=== PATIENT | female | born 1945 | race Caucasian/White ===

== ENCOUNTER 2019-08-04 15:59 | Emergency (ER) | payer MEDICARE, MEDICAID, SELFPAY ==
[2019-08-04 16:16] VITALS: BP 114/58; PULSE 89; RESP 16; TEMP 37.2; O2SAT 95
[2019-08-04 17:57] LABS: Add Manual Diff / Slide Review NO; Basophils Absolute Auto 100 /uL (0-100); Basophils Percent Auto 0.6 % (0-2); Eosinophils Absolute Auto 100 /uL (0-450); Eosinophils Percent Auto 1.2 % (2-4); Hematocrit 31.3 % (36-46); Hemoglobin 10.7 g/dL (12.0-16.0); Lymphocytes Absolute Auto 2200 /uL (1100-4500); Lymphocytes Percent Auto 21.8 % (25-40); Mean Corpuscular HGB Conc 34.2 % (30-36); Mean Corpuscular Hemoglobin 31.7 PG (26-34); Mean Corpuscular Volume 92.5 fL (80-100); Monocytes Absolute Auto 1000 /uL (0-900); Monocytes Percent Auto 9.6 % (3-14); Neutrophils Absolute Auto 6900 /uL (1500-7000); Neutrophils Percent Auto 66.8 % (50-75); Platelet Count 307 X10^3/uL (150-400); Red Blood Cell Count 3.39 X10^6/uL (4.0-5.2); White Blood Cell Count 10.3 X10^3/uL (4.5-11.0)
[2019-08-04 18:03] LABS: Alanine Aminotransferase 21 IU/L (<35); Albumin 3.7 g/dL (3.5-5.0); Albumin Globulin Ratio 0.9 (1.0-2.8); Alkaline Phosphatase 77 U/L (38-126); Aspartate Aminotransferase 27 IU/L (14-36); BUN Creatinine Ratio 23.6 (6-22); Bilirubin Total 0.2 mg/dL (0.2-1.3); Blood Urea Nitrogen 26 mg/dL (7-17); Calcium 8.7 mg/dL (8.4-10.2); Carbon Dioxide 26 mmol/L (22-32); Chloride 102 mmol/L (98-107); Estimated Glomerular Filt Rate 48.4 mL/min (>60); Globulin 4.2 g/dL (1.7-4.1); Glucose 98 mg/dL (80-110); HEMOLYSIS < 15 (0-50); Potassium 3.7 mmol/L (3.4-5.1); Sodium 136 mmol/L (137-145); Total Protein 7.9 g/dL (6.3-8.2)
[2019-08-04 18:29] LABS: Procalcitonin < 0.05 ng/mL (<0.5)
[2019-08-04 18:42] LABS: Appearance Urine UA CLOUDY; Bilirubin Urine UA NEGATIVE (NEGATIVE); Color Urine UA RED; Glucose Urine UA NEGATIVE (Negative); Ketones Urine UA TRACE (NEGATIVE); Leukocyte Esterase Urine UA 1+ (NEGATIVE); Nitrite Urine UA NEGATIVE (Negative); Occult Blood Urine UA 3+ (Negative); Protein Urine UA 3+ (Negative); Specific Gravity Urine UA 1.015 (1.000-1.035); Urobilinogen Urine UA 0.2 E.U./dL (0.2)
[2019-08-04 19:00] LABS: Bacteria Urine Many (>30); Culture Indicated Urine Cult Not Indicated; RBC Urine >100/HPF (0-5/HPF); Squamous Epithelial Cell Urine 10-30 /HPF (0-5/HPF); WBC Urine 10-30/HPF (0-5/HPF)
--- NOTE | 2019-08-04 19:39 | ED_ITS ---
HPI - Female Genitourinary <GUY Flanagan - Last Filed: 08/04/19 19:58> General Chief complaint: Urogenital-Female Stated complaint: Vaginal Bleeding Time Seen by Provider: 08/04/19 16:22 Source: EMS Mode of arrival: EMS Limitations: altered mental status History of Present Illness HPI Narrative: The patient is a 73-year-old female nonsmoker with history of dementia who presents with a chief complaint of blood in her brace twice today at her group home facility. She was seen at an outside facility on the diagnosed with a UTI and started on Keflex, which she started yesterday. The patient denies any fevers nausea vomiting diarrhea abdominal pain. She denies any dysuria urgency or frequency. She presents with a POLSt stating and DNAR as well as [employer]ICE [employer] SAL[employer]. The patient denies any pain. She states she is eating and drinking well Related Data Allergies Allergy/AdvReac Type Severity Reaction Status Date / Time amlodipine Allergy Verified 08/04/19 16:47 Iodine and Iodide Containing Allergy Verified 08/04/19 16:47 Produc Review of Systems <GUY Flanagan - Last Filed: 08/04/19 19:58> Review of Systems Narrative: ROS obtained by report GENERAL: Denies chills, fatigue, malaise, fever, sweats. HEENT: Denies sinus pain, ear pain, sore throat, difficulty swallowing, dizziness. RESPIRATORY: Denies dyspnea, cough, wheezing, hemoptysis, sputum. CARDIOVASCULAR: Denies chest pain, palpitations, orthopnea, edema, GASTROINTESTINAL: Denies nausea, vomiting, abdominal pain, diarrhea, constipation, melena. : See HPI MUSCULOSKELETAL: denies weakness, joint pain, or bony pain SKIN: Denies rash, skin lesions, or other NEUROLOGIC: Denies weakness, headache, numbness, change in speech, confusion, seizures, incoordination. PSYCHIATRIC: No concerning psychosocial issues. 12 point review of systems is negative except for those stated above ROS Unobtainable: Unobtainable due to mental status/LOC Patient History <GUY Flanagan - Last Filed: 08/04/19 19:58> alcohol intake frequency: 0-2 drinks per day Substance Use Type: does not use Exam <GUY Flanagan - Last Filed: 08/04/19 19:58> Narrative Exam Narrative: GENERAL: Elderly female no acute distress HEAD: Atraumatic. Normocephalic. No temporal or scalp tenderness. EYES: Pupils equal round and reactive. Extraocular motions intact. No scleral icterus. No injection or drainage. ENT: Nose without bleeding, purulent drainage or septal hematoma. Throat without erythema, tonsillar hypertrophy or exudate. Uvula midline. Airway patent. NECK: Trachea midline. No JVD or lymphadenopathy. Supple, nontender, no meningeal signs. CARDIOVASCULAR: Regular rate and rhythm RESPIRATORY: Clear to auscultation. Breath sounds equal bilaterally. No wheezes, rales, or rhonchi. GASTROINTESTINAL: Abdomen soft, non-tender, nondistended. No hepato-splenomegaly, or palpable masses. No guarding. : Bloody urine by straight cath. No obvious vaginal bleeding on external exam. Heme-negative stool EXTREMITIES: No clubbing, cyanosis, or edema. No joint tenderness, effusion, or edema noted. BACK: Nontender without deformity or crepitance. No flank tenderness. NEURO: AOx3. SKIN: No rash or erythema. Initial Vital Signs Initial Vital Signs: Vital Signs Temperature 98.9 F 08/04/19 16:16 Pulse Rate 89 08/04/19 16:16 Respiratory Rate 16 08/04/19 16:16 Blood Pressure 114/58 L 08/04/19 16:16 Pulse Oximetry 95 08/04/19 16:16 <Bernardino Bartholomew DO - Last Filed: 08/04/19 20:31> Initial Vital Signs Initial Vital Signs: Vital Signs Temperature 98.9 F 08/04/19 16:16 Pulse Rate 89 08/04/19 16:16 Respiratory Rate 16 08/04/19 16:16 Blood Pressure 114/58 L 08/04/19 16:16 Pulse Oximetry 95 08/04/19 16:16 Procedures <GUY Flanagan Last Filed: 08/04/19 19:58> Stool Hemoccult Procedural Steps Taken: stool placed in appropriate test area, developer placed on stool and control areas and controls appropriately positive and negative Hemoccult result: negative Course <GUY Flanagan Last Filed: 08/04/19 19:58> Orders Ordered: ED Orders 08/04/19 17:40 Complete Blood Count AUTO DIFF Stat Comprehensive Metabolic Panel Stat Procalcitonin Stat 08/04/19 18:00 Urinalysis and Microscopic Stat Urine Culture Stat Vital Signs Vital signs: Vital Signs - 8 hr 08/04/19 16:16 Temperature 98.9 F Pulse Rate 89 Respiratory Rate 16 Blood Pressure 114/58 L Pulse Oximetry 95 <Bernardino Bartholomew DO - Last Filed: 08/04/19 20:31> Orders Ordered: ED Orders 08/04/19 17:40 Complete Blood Count AUTO DIFF Stat Comprehensive Metabolic Panel Stat Procalcitonin Stat 08/04/19 18:00 Urinalysis and Microscopic Stat Urine Culture Stat Vital Signs Vital signs: Vital Signs - 8 hr 08/04/19 16:16 Temperature 98.9 F Pulse Rate 89 Respiratory Rate 16 Blood Pressure 114/58 L Pulse Oximetry 95 MDM - Female Genitourinary <HOMER Flanagan- - Last Filed: 08/04/19 19:58> Lab Data Result diagrams: 08/04/19 17:40 08/04/19 17:40 Labs: Lab Results 08/04/19 08/04/19 08/04/19 Range/Units 17:40 17:40 17:40 WBC 10.3 (4.5-11.0) X10^3/uL RBC 3.39 L (4.0-5.2) X10^6/uL Hgb 10.7 L (12.0-16.0) g/dL Hct 31.3 L (36-46) % MCV 92.5 (80-100) fL MCH 31.7 (26-34) PG MCHC 34.2 (30-36) % RDW 14.0 (11.6-14.8) % Plt Count 307 (150-400) X10^3/uL Neut % (Auto) 66.8 (50-75) % Lymph % (Auto) 21.8 L (25-40) % [place] % (Auto) 9.6 (3-14) % Eos % (Auto) 1.2 L (2-4) % Baso % (Auto) 0.6 (0-2) % Neut # (Auto) 6900 (4792-2553) /uL Lymph # (Auto) 2200 (0635-2748) /uL [place] # (Auto) 1000 H (0-900) /uL Eos # (Auto) 100 (0-450) /uL Baso # (Auto) 100 (0-100) /uL Sodium 136 L (137-145) mmol/L Potassium 3.7 (3.4-5.1) mmol/L Chloride 102 (98-107) mmol/L Carbon Dioxide 26 (22-32) mmol/L BUN 26 H (7-17) mg/dL Creatinine 1.10 H (0.52-1.04) mg/dL Estimated GFR 48.4 L (>60) mL/min BUN/Creatinine Ratio 23.6 H (6-22) Glucose 98 (80-110) mg/dL Calcium 8.7 (8.4-10.2) mg/dL Total Bilirubin 0.2 (0.2-1.3) mg/dL AST 27 (14-36) IU/L ALT 21 (<35) IU/L Alkaline Phosphatase 77 (38-126) U/L Total Protein 7.9 (6.3-8.2) g/dL Albumin 3.7 (3.5-5.0) g/dL Globulin 4.2 H (1.7-4.1) g/dL Albumin/Globulin Ratio 0.9 L (1.0-2.8) Procalcitonin < 0.05 (<0.5) ng/mL Urine Color Urine Appearance Urine pH (4.5-8.0) Ur Specific [place] (1.000-1.035) Urine Protein (Negative) Urine Glucose (UA) (Negative) g/dL Urine Ketones (NEGATIVE) Urine Occult Blood (Negative) Urine Nitrate (Negative) Urine Bilirubin (NEGATIVE) Urine Urobilinogen (0.2) E.U./dL Ur Leukocyte Esterase (NEGATIVE) Urine RBC (0-5/HPF) Urine WBC (0-5/HPF) Ur Squamous Epith Cells (0-5/HPF) Urine Bacteria (None) Ur Culture Indicated? 08/04/19 Range/Units 18:00 WBC (4.5-11.0) X10^3/uL RBC (4.0-5.2) X10^6/uL Hgb (12.0-16.0) g/dL Hct (36-46) % MCV (80-100) fL MCH (26-34) PG MCHC (30-36) % RDW (11.6-14.8) % Plt Count (150-400) X10^3/uL Neut % (Auto) (50-75) % Lymph % (Auto) (25-40) % [place] % (Auto) (3-14) % Eos % (Auto) (2-4) % Baso % (Auto) (0-2) % Neut # (Auto) (5315-2375) /uL Lymph # (Auto) (3306-3982) /uL [place] # (Auto) (0-900) /uL Eos # (Auto) (0-450) /uL Baso # (Auto) (0-100) /uL Sodium (137-145) mmol/L Potassium (3.4-5.1) mmol/L Chloride (98-107) mmol/L Carbon Dioxide (22-32) mmol/L BUN (7-17) mg/dL Creatinine (0.52-1.04) mg/dL Estimated GFR (>60) mL/min BUN/Creatinine Ratio (6-22) Glucose (80-110) mg/dL Calcium (8.4-10.2) mg/dL Total Bilirubin (0.2-1.3) mg/dL AST (14-36) IU/L ALT (<35) IU/L Alkaline Phosphatase (38-126) U/L Total Protein (6.3-8.2) g/dL Albumin (3.5-5.0) g/dL Globulin (1.7-4.1) g/dL Albumin/Globulin Ratio (1.0-2.8) Procalcitonin (<0.5) ng/mL Urine Color Red Urine Appearance Cloudy Urine pH 7.0 (4.5-8.0) Ur Specific [place] 1.015 (1.000-1.035) Urine Protein 3+ H (Negative) Urine Glucose (UA) Negative (Negative) g/dL Urine Ketones Trace H (NEGATIVE) Urine Occult Blood 3+ H (Negative) Urine Nitrate Negative (Negative) Urine Bilirubin Negative (NEGATIVE) Urine Urobilinogen 0.2 (0.2) E.U./dL Ur Leukocyte Esterase 1+ H (NEGATIVE) Urine RBC >100/hpf H (0-5/HPF) Urine WBC 10-30/hpf H (0-5/HPF) Ur Squamous Epith Cells 10-30 /hpf H (0-5/HPF) Urine Bacteria Many (>30) H (None) Ur Culture Indicated? Cult not indicated MDM Narrative Medical decision making narrative: The patient is a 73-year-old female who presents with a chief complaint of blood in her briefs from her group home facility. She was seen at an outside facility a few days ago and started on an antibiotic. This visit was on the . There is no obvious vaginal bleeding on external exam, no bloody stools. Her urine does have blood in it, however she has no signs of systemic illness, is afebrile, has a negative procalcitonin. She has no pain on exam. Her POLST states DNAR with comfort measures only, I would like to respect her wishes at this point time. I discussed at length continuing her Keflex as prescribed by her outside facility. Urine culture is being done and if we need to change her antibiotic therapy we will. She is hemodynamically stable and afebrile throughout her stay in the emergency department. <Bernardino Bartholomew, DO - Last Filed: 08/04/19 20:31> Lab Data Labs: Lab Results 08/04/19 08/04/19 08/04/19 Range/Units 17:40 17:40 17:40 WBC 10.3 (4.5-11.0) X10^3/uL RBC 3.39 L (4.0-5.2) X10^6/uL Hgb 10.7 L (12.0-16.0) g/dL Hct 31.3 L (36-46) % MCV 92.5 (80-100) fL MCH 31.7 (26-34) PG MCHC 34.2 (30-36) % RDW 14.0 (11.6-14.8) % Plt Count 307 (150-400) X10^3/uL Neut % (Auto) 66.8 (50-75) % Lymph % (Auto) 21.8 L (25-40) % [place] % (Auto) 9.6 (3-14) % Eos % (Auto) 1.2 L (2-4) % Baso % (Auto) 0.6 (0-2) % Neut # (Auto) 6900 (1910-2064) /uL Lymph # (Auto) 2200 (5227-5410) /uL [place] # (Auto) 1000 H (0-900) /uL Eos # (Auto) 100 (0-450) /uL Baso # (Auto) 100 (0-100) /uL Sodium 136 L (137-145) mmol/L Potassium 3.7 (3.4-5.1) mmol/L Chloride 102 (98-107) mmol/L Carbon Dioxide 26 (22-32) mmol/L BUN 26 H (7-17) mg/dL Creatinine 1.10 H (0.52-1.04) mg/dL Estimated GFR 48.4 L (>60) mL/min BUN/Creatinine Ratio 23.6 H (6-22) Glucose 98 (80-110) mg/dL Calcium 8.7 (8.4-10.2) mg/dL Total Bilirubin 0.2 (0.2-1.3) mg/dL AST 27 (14-36) IU/L ALT 21 (<35) IU/L Alkaline Phosphatase 77 (38-126) U/L Total Protein 7.9 (6.3-8.2) g/dL Albumin 3.7 (3.5-5.0) g/dL Globulin 4.2 H (1.7-4.1) g/dL Albumin/Globulin Ratio 0.9 L (1.0-2.8) Procalcitonin < 0.05 (<0.5) ng/mL Urine Color Urine Appearance Urine pH (4.5-8.0) Ur Specific [place] (1.000-1.035) Urine Protein (Negative) Urine Glucose (UA) (Negative) g/dL Urine Ketones (NEGATIVE) Urine Occult Blood (Negative) Urine Nitrate (Negative) Urine Bilirubin (NEGATIVE) Urine Urobilinogen (0.2) E.U./dL Ur Leukocyte Esterase (NEGATIVE) Urine RBC (0-5/HPF) Urine WBC (0-5/HPF) Ur Squamous Epith Cells (0-5/HPF) Urine Bacteria (None) Ur Culture Indicated? 08/04/19 Range/Units 18:00 WBC (4.5-11.0) X10^3/uL RBC (4.0-5.2) X10^6/uL Hgb (12.0-16.0) g/dL Hct (36-46) % MCV (80-100) fL MCH (26-34) PG MCHC (30-36) % RDW (11.6-14.8) % Plt Count (150-400) X10^3/uL Neut % (Auto) (50-75) % Lymph % (Auto) (25-40) % [place] % (Auto) (3-14) % Eos % (Auto) (2-4) % Baso % (Auto) (0-2) % Neut # (Auto) (6011-5881) /uL Lymph # (Auto) (0654-3861) /uL [place] # (Auto) (0-900) /uL Eos # (Auto) (0-450) /uL Baso # (Auto) (0-100) /uL Sodium (137-145) mmol/L Potassium (3.4-5.1) mmol/L Chloride (98-107) mmol/L Carbon Dioxide (22-32) mmol/L BUN (7-17) mg/dL Creatinine (0.52-1.04) mg/dL Estimated GFR (>60) mL/min BUN/Creatinine Ratio (6-22) Glucose (80-110) mg/dL Calcium (8.4-10.2) mg/dL Total Bilirubin (0.2-1.3) mg/dL AST (14-36) IU/L ALT (<35) IU/L Alkaline Phosphatase (38-126) U/L Total Protein (6.3-8.2) g/dL Albumin (3.5-5.0) g/dL Globulin (1.7-4.1) g/dL Albumin/Globulin Ratio (1.0-2.8) Procalcitonin (<0.5) ng/mL Urine Color Red Urine Appearance Cloudy Urine pH 7.0 (4.5-8.0) Ur Specific [place] 1.015 (1.000-1.035) Urine Protein 3+ H (Negative) Urine Glucose (UA) Negative (Negative) g/dL Urine Ketones Trace H (NEGATIVE) Urine Occult Blood 3+ H (Negative) Urine Nitrate Negative (Negative) Urine Bilirubin Negative (NEGATIVE) Urine Urobilinogen 0.2 (0.2) E.U./dL Ur Leukocyte Esterase 1+ H (NEGATIVE) Urine RBC >100/hpf H (0-5/HPF) Urine WBC 10-30/hpf H (0-5/HPF) Ur Squamous Epith Cells 10-30 /hpf H (0-5/HPF) Urine Bacteria Many (>30) H (None) Ur Culture Indicated? Cult not indicated Discharge Plan Departure Patient Disposition: Home Clinical Impression: Urinary tract infection Qualifiers: Urinary tract infection type: acute cystitis Hematuria presence: with hematuria Qualified Code(s): N30.01 - Acute cystitis with hematuria Instructions: DI for Urinary Tract Infection (UTI) Activity Restrictions/Additional Instructions: Thank you for trusting us with your care today. Your urine is concerning for infection, which has led to some bloody urine. However your lab work is stable, your kidney function is good. There is no evidence of vaginal bleeding, no evidence of bloody stool. Please continue to take the antibiotic that was started by the outside facility. We are doing a urine culture to make sure that that antibiotic will work for your infection. If we need to change that we will call something in for you. Please come back to the emergency department for any acute concerns such as concern of heart attack, stroke etcetera please monitor for fever, inability keep down fluids as these are signs of worsening infection. <Bernardino Bartholomew, DO - Last Filed: 08/04/19 20:31> Cosign ED Attending Cosignature Attestation: Dr Bartholomew Co-Sign Statement: I was available for consultation during this patient's emergency department visit. This chart is signed by myself for administrative purposes only. I did not have direct contact with this patient during this visit. They were seen independently by the [facility].
--- NOTE | 2019-08-04 20:17 | PC.NURSE ---
attempt made to [facility] to get ride back for patient. #[phone]
[2019-08-04 20:59] VITALS: BP 127/75; PULSE 87; RESP 15; O2SAT 99
== END 2019-08-04 22:03 | disposition home or self-care (01) ==
PROVIDERS: Emergency Provider Nurse Practitioner Family
DX: N30.01 Acute cystitis with hematuria (principal)
CPT/HCPCS: 36415; 80053; 81001; 84145; 85025; 87086; 99282; 99283